=== PATIENT | male | born 1985 | race Two or more races ===

== ENCOUNTER → 2020-07-02 | Outpatient (CLI) | payer OTHER ==
[2020-07-02 09:45] LABS: ANION GAP 10 (5-19); BLOOD UREA NITROGEN 15 mg/dL (7-20); CALCIUM 9.9 mg/dL (8.4-10.2); CARBON DIOXIDE 25 mmol/L (22-30); CHLORIDE 106 mmol/L (98-107); GLUCOSE 107 mg/dL (75-110); POTASSIUM 4.2 mmol/L (3.6-5.0)
[2020-07-02 09:55] LABS: CREATININE 1.33 mg/dL (0.52-1.25)
[2020-07-02 10:58] LABS: URINE CREATININE 84.9 mg/dL (24-392)
== END ==
LOC: OD 08:45
PROVIDERS: ATTEND Internal Medicine Nephrology
DX: N17.9 Acute kidney failure, unspecified (principal); M62.82 Rhabdomyolysis; R31.9 Hematuria, unspecified
CPT/HCPCS: 36415; 80048; 82575